=== PATIENT | female | born 1960 | race African-American/Black ===

== ENCOUNTER 2019-08-16 11:45 | Emergency (ER) | payer OTHER ==
[~2019-08-16] VITALS: Ht 167.6 cm; Wt 103.0 kg
--- OUTSIDE RECORDS SUMMARY | 2019-08-16 11:48 | XMS REPORT | Clinical Summary ---
Author Author [facility] Organization [facility] Address Unknown Phone Unavailable Care Team Providers Care Fingernail Sculpturer Name Role Phone Chapincito Fletcher DO PCP Allergies No Known Allergies Medications End Date Status Medication Sig Dispensed Refills Start Date Active zolpidem (AMBIEN) 5 MG Take 5 mg by 0 tablet mouth nightly as needed for sleep. Active Problems Not on file Social History Date Tobacco Use Types Packs/Day Years Used Never Smoker Smokeless Tobacco: Never Used Drinks/Week oz/Week Comments Alcohol Use No Sex Assigned at Date Recorded Not on file Industry Job Start Date Occupation Not on file Not on file Not on file Travel End Travel History Travel Start No recent travel history available. Last Filed Vital Signs Not on file Plan of Treatment Health Maintenance Due Date Last Done Comments CERVICAL CANCER SCREENING 10/13/1980 BREAST CANCER SCREENING 10/13/2009 COLONOSCOPY SCREENING 10/13/2009 SHINGLES VACCINES (#1) 10/13/2009 INFLUENZA VACCINE 11/08/2019 Results Not on fileafter 08/15/2018 Insurance Type Payer Benefit Subscriber ID Effective Phone Address Plan / Dates Group Commercial COMMERCIAL MISC MISC xxx 2017- COMMERCIAL Present TPL TPL TPL-MED-DA xxxxxxxxxx 2017- TA Present Advance Directives For more information, please contact: [phone] Patient Vp Scientific Affairs Explanation Type Date Recorded Advance Directives, 09/28/2017 11:20 AM Living Will and Medical Power of Pathology Tech
[2019-08-16 12:10] LABS: CLARITY,URINE SL CLOUDY (CLEAR); COLOR,URINE YELLOW (YELLOW); KETONES,URINE NEGATIVE (NEGATIVE); LEUKOCYTE ESTERASE ,URINE 1+ (NEGATIVE); NITRITE,URINE NEGATIVE (NEGATIVE); PROTEIN,URINE DIPSTICK NEGATIVE (NEGATIVE); URINE UROBILINOGEN 0.2 mg/dL (0.2 - 1)
[2019-08-16 12:11] LABS: BILIRUBIN,URINE NEGATIVE (NEGATIVE)
[2019-08-16 12:22] LABS: BACTERIA,URINE FEW /HPF; EPITHELIAL CELLS,URINE FEW /LPF; RBC,URINE 0-5 /HPF (0-5); WBC,URINE (MAN) >50 /HPF (0-5)
[2019-08-16] MEDS ORDERED: CEFDINIR300 MG PO (12:39)
[2019-08-16] MEDS ORDERED: PYRIDIUM200 MG PO (12:39)
[2019-08-16] MEDS ORDERED: CEFTRIAXONE SOD 1 GM VIAL IM ONE (13:00)
[2019-08-16] MEDS ORDERED: LIDOCAINE HCL 1% 2 ML AMP ONE (13:36)
== END 2019-08-16 14:21 | disposition home or self-care (01) ==
LOC: ER 11:45
DX: R30.0 Dysuria (principal); M54.5 Low back pain; N30.90 Cystitis, unspecified without hematuria
CPT/HCPCS: 81001; 87086; 87186; 99283; J0696; J2001